=== PATIENT | male | born 1955 | race Caucasian/White ===

== ENCOUNTER → 2021-05-06 | Outpatient (CLI) | payer OTHER ==
[~2021-05-06] MED LIST: ASPIR-TRIN325 MG PO; CARBIDOPA-LEVO1 EAC5 PO; OMEPRAZOLE 20 M20 M1 PO; ROSUVASTATIN CA10 MG PO; VITAMIN D325 MC3 PO
[2021-05-06 09:51] LABS: URINE BILIRUBIN NEGATIVE (Negative); URINE BLOOD NEGATIVE (Negative); URINE CLARITY CLEAR; URINE COLOR YELLOW; URINE GLUCOSE-RANDOM* NEGATIVE (Negative); URINE KETONES NEGATIVE (Negative); URINE LEUKOCYTES-REFLEX NEGATIVE (Negative); URINE NITRITE-REFLEX NEGATIVE (Negative); URINE PROTEIN (DIPSTICK) NEGATIVE (Negative); URINE SPECIFIC GRAVITY >= 1.030 (1.005-1.035); URINE UROBILINOGEN 0.2 E.U./dl (0.2-1.0)
[2021-05-06 09:56] LABS: HEMATOCRIT 45.3 % (42.0-52.0); HEMOGLOBIN 15.2 gm/dL (14.0-18.0); MCH 32.2 pg (26.0-34.0); MCHC 33.5 g/dL (28.0-37.0); MCV 95.9 fL (80.0-100.0); RBC 4.72 mil/uL (4.50-6.00); RDW 13.4 % (10.5-14.5); WBC 5.8 thou/uL (4.0-11.0)
[2021-05-06 10:05] LABS: INR 0.98; PROTIME 10.7 Seconds (10.5-12.1)
[2021-05-06 10:11] LABS: ALBUMIN 4.2 g/dL (3.4-5.0); CALCIUM 9.3 mg/dL (8.5-10.1); CREATININE 0.9 mg/dL (0.7-1.3); POTASSIUM 4.4 mmol/L (3.5-5.1)
--- NOTE | 2021-05-06 11:46 | EKG ---
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
== END ==
LOC: PAC 08:26
PROVIDERS: ATTEND Orthopaedic Surgery
DX: Z01.810 Encounter for preprocedural cardiovascular examination (principal); Z01.812 Encounter for preprocedural laboratory examination; I45.10 Unspecified right bundle-branch block; M17.11 Unilateral primary osteoarthritis, right knee

== ENCOUNTER 2021-05-16 08:32 | Observation (INO) | payer OTHER ==
[~2021-05-16] VITALS: Ht 170.2 cm; Wt 117.9 kg
[2021-05-16 10:39] VITALS: BP 41/82
[2021-05-16 19:46] VITALS: BP 122/68
--- NOTE | 2021-05-16 19:56 | NUR ---
Received report from PACU, VS stable. Jefferson horne, GASTON and polar ice pack in place on the right knee. Pain is managed with medications, partial relief is noted. Endorsed to the night nurse.
--- NOTE | 2021-05-17 03:32 | NUR ---
ADMISSION ASSESSMENT COMPLETED. PT IS ALERT AND PLEASANT. JUANA DRSG WITH POLAR AMBER TO RIGHT KNEE. PT WITH GOOD CSM.PAIN MANAGED BY ORAL PAIN MEDS.VSS.IVF AND IV ABTS INFUSED/ING.CALLS APPROPRIATELY.
[2021-05-17 03:53] VITALS: BP 148/91
[2021-05-17] MEDS ORDERED: HYDROCODON-ACE1 EAC7 PO (08:15)
[2021-05-17] MEDS ORDERED: TRI-BUFFERED A325 M1 PO (08:15)
[2021-05-17] MEDS ORDERED: MS CONTIN15 MG PO (08:15)
--- NOTE | 2021-05-17 08:17 | O ---
[facility] [place] [address] OPERATIVE REPORT Name: MIHAELA ASHLEY Room #: 448-P [facility] MErick#: [id number] Admission: 05/16/21 Attend Phys: Shad Delgado MD Discharge: Date of : 57 Report #: [id number] THIS REPORT FOR: cc: Noam Roblero MD, David A. MD Abraham,Shad Colon MD ~ DATE OF SERVICE: 05/16/2021 PREOPERATIVE DIAGNOSIS: Right knee osteoarthritis. POSTOPERATIVE DIAGNOSIS: Right knee osteoarthritis. PROCEDURE: Right total knee arthroplasty using Navio robotic assistance. SURGEON: Shad Delgado MD CAR INSPECTOR: Maria Guadalupe Snyder PA-C INDICATION FOR CAR INSPECTOR: Throughout the case, extensive retraction, manipulation of the knee was required. This was afforded to me by my records management assistant. ANESTHESIA: LMA with adductor canal block. IMPLANTS: Bejarano and Nephew size 7 Journey II BCS Oxinium femur, size 7 tibia, size 10 constrained polyethylene, size 35 patella. TOURNIQUET TIME: 57 minutes. ESTIMATED BLOOD LOSS: 25 mL. COMPLICATIONS: None. SPECIMENS: None. CONDITION UPON LEAVING THE OR: Stable. INDICATIONS FOR PROCEDURE: The patient is a 66-year-old gentleman with right knee osteoarthritis. He had failed conservative measures for this and after discussion with him, he elected for right total knee arthroplasty. DESCRIPTION OF PROCEDURE: Risks, benefits, alternatives, complications were discussed in detail with the patient including, but not limited to risk of anesthesia; risk of damage to nerves, arteries, blood vessels; risk for infection, bleeding; risk for continued knee pain and need for reoperation. Informed consent was obtained from the patient. Right knee was appropriately marked in the preoperative holding area. IV Ancef was given for preoperative [address] [place] [address] OPERATIVE REPORT Name: MIHAELA ASHLEY Room #: 448-P [facility] Gilmar Burks#: [id number] Admission: 05/16/21 Attend Phys: Shad Delgado MD Discharge: Date of : 57 Report #: [id number] antibiotics. He was brought to operating room and placed in supine position on the operating table. LMA anesthesia was induced without complication. Tourniquet was placed on the right thigh. Right lower extremity was prepped and draped in normal sterile fashion. Timeout was performed, properly identifying the patient and procedure as well as the instrumentation and implants. All in the operating room in agreement. Right lower extremity was exsanguinated and tourniquet inflated. Tourniquet time was 57 minutes. Standard midline approach to the knee was made with 10 blade through the skin. Dissection was taken down sharply to the fascia and deep flaps were developed medially and laterally. Fresh 10 blade was used to make a medial parapatellar arthrotomy and the knee was inspected. There was severe tricompartmental osteoarthritis. ACL and PCL were removed sharply. Reference pins were placed in the femur and the tibia. The knee was digitally mapped using Navio robotic system. Intraoperative plan was made and we sized the size 7 femur, size 7 tibia, and a 10 spacer. After acceptance of the intraoperative plan, the distal femoral cut was made with Navio bur. Distal femoral cutting block was pinned in place and chamfer cuts were made. Attention was turned to the tibia. Remainder of the menisci removed with Bovie cautery. Tibial resection guide was pinned in place using Navio for placement. Tibial resection was made. Flexion and extension gaps were checked and found to have good flexion and extension both medially and laterally. Tibia sized, found to be a size 7. Size 7 tibial trial was placed, pinned, and punched. Size 7 femoral trial was placed. Box cut was made. This was then trialed with a size 10 polyethylene. Size 10 polyethylene demonstrated 1-1.5 mm of laxity laterally throughout range of motion of the knee. Medially, he did open up to about 3 mm and this was expected given his underlying valgus deformity. It was felt we could make up for this with a constrained liner. A 9 mm of bone was resected from the posterior surface of the patella and a size 35 patellar trial button was placed. Knee was taken through range of motion, found to be stable, found to have good patellar tracking. Trial components were removed. Bone ends were thoroughly irrigated with normal saline. Final size 7 tibia, size 7 Journey II BCS Oxinium femur, and a size 35 patella were cemented in place using standard cementation techniques. While the cement cured, a periarticular injection consisting of morphine, ropivacaine, epinephrine, Toradol was placed around the knee joint capsule. After the cement cured, tourniquet was deflated. Hemostasis was obtained with Bovie cautery. A final size 10 constrained polyethylene was placed. A gram of vancomycin was placed deep in the joint. Fascia was closed with 0 Vicryl. Skin was closed with 2-0 Vicryl, skin staple and a JUANA dressing was applied. The patient tolerated this procedure well and went to recovery room under care of anesthesia postoperatively. <ELECTRONICALLY SIGNED> By: Shad Delgado MD 05/17/21 0817 1323 1348 Shad Delgado MD /nt
[2021-05-17 08:30] VITALS: BP 145/55
[2021-05-17 10:49] VITALS: BP 145/55
--- NOTE | 2021-05-17 11:03 | NUR ---
ASSUMED PT CARE THIS AM. PT IS ALERT & ORIENTED X4. REMOVED IV ON RHAND. PT HAS POLAR PACK, [facility]IL[facility]AL [facility], SCD. PT IS ON ROOM AIR. PT TOLERATED DIET AND MEDICATION WELL. GIVEN PAIN MEDICATION PRIOR WORKING WITH PHYSICAL THERAPY THIS AM. PER PHYSICAL THERAPY OK AND SAFE FOR DC. PT WAS AT THE BEDSIDE. EDUCATED AND INFORMED PT ABOUT DC INSTRUCTION SUCH WHEN TO FOLLOW UP WITH DR AND MEDICATIONS. WHEEL PT DOWN. PT DC TODAY.
== END 2021-05-17 11:10 | disposition home or self-care (01) ==
LOC: OR → 4S 15:53 → OR 15:54 → 4S 05-17 11:10
PROVIDERS: ADMIT Orthopaedic Surgery; ATTEND Orthopaedic Surgery
DX: M17.11 Unilateral primary osteoarthritis, right knee (principal); Z79.899 Other long term (current) drug therapy; Z20.822 Contact with and (suspected) exposure to COVID-19
CPT/HCPCS: 10102; 50010; 50101; 50415; 50954; 51130; 51225; 51320; 51412; 52001; 52282; 53000; 53078; 53365; 56527; 56528; 57095; 57103; 57110; 57127; 57180; 62110; 62900; 64042; 70005